=== PATIENT | male | born 1975 | race Two or more races ===

== ENCOUNTER 2017-01-14 09:17 | Day surgery (SDC) | payer OTHER ==
[2017-01-05 14:57] VITALS: BMI 27.9
[2017-01-14] MEDS ORDERED: BUPIVACAINE HCL/PF 2.5 MG/ML - 30 ML VIAL IJ ONE (10:51)
[2017-01-14] MEDS ORDERED: MIDAZOLAM HCL 2 MG/2 ML SINGLE DOSE VIAL ONE (12:34)
[2017-01-14] MEDS ORDERED: PROPOFOL 20 ML ONE ×2 (12:38)
--- NOTE | 2017-01-14 12:50 | OP ---
Operative Note - Note: Operative Date: 01/14/17 Pre-Operative Diagnosis: r mmt Operation: right knee arthroscopy, partial lateral meniscectomy Post-Operative Diagnosis: Same as Pre-op Surgeon: Jared Dumont Anesthesiologist/BURR GRINDER: Virgilio Gordon Anesthesia: General Estimated Blood Loss (mls): 10 Operative Report Dictated: Yes
[2017-01-14] MEDS ORDERED: ceFAZolin SODIUM 1 GM VIAL ONE (12:51)
[2017-01-14] MEDS ORDERED: KETOROLAC TROMETHAMINE 30 MG/1 ML VIAL ONE (13:11)
[2017-01-14] MEDS ORDERED: BUPIVACAINE HCL/PF 0.25% (2.5MG/ML) 10 ML VIAL IJ ONE (13:25)
[2017-01-14] MEDS ORDERED: ONDANSETRON 4 MG/2 ML VIAL ONE (13:43)
[2017-01-14] MEDS ORDERED: ONDANSETRON 4 MG/2 ML VIAL IVPUSH PRN (13:50)
[2017-01-14] MEDS ORDERED: oxyCODONE HCL 5 MG TABLET PO PRN (13:50)
[2017-01-14] MEDS ORDERED: LACTATED RINGERS SOLUTION 1,000 ML IV SCH (14:00)
--- NOTE | 2017-01-14 14:10 | OP ---
DATE OF OPERATION: 01/14/2017 PREOPERATIVE DIAGNOSIS: Right knee lateral meniscal tear. POSTOPERATIVE DIAGNOSIS: Right knee lateral meniscal tear. PROCEDURE: Right knee arthroscopy with partial lateral meniscectomy. SURGEON: Jared Dumont MD LABOR[address] RO[address]: None. ANESTHESIA: General. POSTOPERATIVE CONDITION: Stable. BLOOD LOSS: Minimal. TOURNIQUET TIME: 28 minutes. INDICATION: This is a pleasant 41-year-old gentleman who had been suffering from lateral knee pain. MRI demonstrated lateral meniscal tear. Treatment options, including nonoperative versus operative management, were discussed. Operative risks were reviewed in detail, including bleeding, infection, neurovascular injury, need for further surgery, postoperative pain and stiffness, progression of osteoarthritis. We discussed medical risks such as heart attack, stroke, DVT, PE, and . I addressed all the patient's questions. He voiced understanding and elected to proceed. PROCEDURE: Patient was brought to the operating room where general anesthesia was administered. The right lower extremity was then prepped and draped in the usual sterile fashion. A preoperative dose of antibiotics was given and the usual timeout procedure was performed. At this point, the limb was exsanguinated and the tourniquet was inflated to 250 mmHg. A lateral portal was established using an 11 blade. The arthroscope was then passed into the knee. Examination of the patellofemoral joint demonstrated some mild superficial cartilage fraying on both surfaces. Passing the arthroscope down to the notch demonstrated some fraying about the ACL, but it was intact. PCL was intact as well. Passing the arthroscope into the medial compartment demonstrated no definite meniscal lesions. A medial portal was now established under spinal needle localization. There was some moderate fraying about the lateral border of the medial femoral condyle in the articular cartilage surface. However, no unstable flaps were noted. Probing the meniscus demonstrated it was stable and without tear. No remarkable lesions were seen on the tibial side. Passing the arthroscope into the lateral compartment demonstrated a very frayed tear of the anterior horn of the lateral meniscus. Utilizing a combination of meniscal biters and mal, this was debrided down to a stable base. The remainder of the meniscus was probed and found to be stable. At this point, the excess fluid was withdrawn from the knee. The portals were sutured using 3-0 Vicryl. A compressive dressing was placed. The tourniquet was let down. The patient was extubated and transferred to the recovery room in stable condition. Juanis PASTOR/[id number]
[2017-01-14] MEDS ORDERED: KETOROLAC TROMETHAMINE 30 MG/1 ML VIAL IVPUSH ONE (14:16)
[2017-01-14 15:03] VITALS: PULSE 64; TEMP 97.7
[2017-01-14] MEDS ORDERED: oxyCODONE HCL 5 MG TABLET ONE (15:20)
[2017-01-14 17:21] VITALS: BP 124/79
== END 2017-01-14 16:00 | disposition home or self-care (01) ==
LOC: FASU 09:17
PROVIDERS: ATTEND Orthopaedic Surgery Sports Medicine
PROC: 0SBC4ZZ Excision of Right Knee Joint, Percutaneous Endoscopic Approach (ICD-10-PCS; principal; 2017-01-14 13:04)
DX: S83.281A Other tear of lateral meniscus, current injury, right knee, initial encounter (principal); X58.XXXA Exposure to other specified factors, initial encounter; Y93.9 Activity, unspecified; Y92.9 Unspecified place or not applicable
CPT/HCPCS: 94760